=== PATIENT | female | born 2000 | race Caucasian/White ===

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

== ENCOUNTER 2022-11-01 15:54 | Emergency (ER) | payer OTHER ==
[2022-11-01 16:03] VITALS: RESP 18; TEMP 98.9; BMI 30.2
[2022-11-01] MEDS ORDERED: LACTATED RINGERS SOLUTION 1,000 ML/1,000 ML INFUS.BAG IV SCH (17:30)
[2022-11-01 17:33] LABS: HCG,QUALITATIVE URINE Positive
[2022-11-01] MEDS ORDERED: ACETAMINOPHEN 1000 MG/100 ML BAG IVPB ONE (17:34)
[2022-11-01] MEDS ORDERED: ONDANSETRON 4 MG/2 ML VIAL IVPUSH ONE ×2 (17:34→21:52)
[2022-11-01 17:36] LABS: EPI CELLS >36 /uL (0-25.1); HYALINE CASTS 3 /uL (0-3.1); PH,URINE 6.5 (5.0-8.0); URINE APPEARANCE CLOUDY; URINE BACTERIA 1269 /uL (0-1359); URINE BILIRUBIN NEGATIVE (NEGATIVE); URINE COLOR YELLOW; URINE GLUCOSE (UA) NEGATIVE (NEGATIVE); URINE KETONE 3+ (NEGATIVE); URINE LEUK ESTERASE NEGATIVE (NEGATIVE); URINE NITRITE NEGATIVE (NEGATIVE); URINE PROTEIN 1+ (NEGATIVE); URINE RBC 23 /uL (0-23.9); URINE WBC 24 /uL (0-25.8)
[2022-11-01] MEDS ORDERED: ACETAMINOPHEN INJECTION 100 ML IVPB ONE (18:03)
[2022-11-01] MEDS ORDERED: ONDANSETRON 4 MG/2 ML VIAL ONE ×2 (18:03→21:52)
[2022-11-01 18:07] LABS: BASO % 0.5 % (0-2.0); HEMATOCRIT 32.1 % (32.4-45.2); HEMOGLOBIN 10.1 GM/dL (10.7-15.3); LYMPH % 21.5 % (8-40); MCHC 31.4 g/dl (32.0-36.0); MEAN CELL VOLUME 70.2 fl (80-96); MONO % 8.8 % (3.8-10.2); NEUT % 67.2 % (42.8-82.8); RBC 4.57 M/mm3 (3.60-5.2)
[2022-11-01 18:25] LABS: ALBUMIN 3.8 g/dl (3.4-5.0); BLOOD UREA NITROGEN 7.4 mg/dL (7-18); CALCIUM 8.4 mg/dL (8.5-10.1)
[2022-11-01 18:28] LABS: CREATININE 0.5 mg/dL (0.55-1.3)
[2022-11-01 18:30] LABS: BILIRUBIN,TOTAL 0.5 mg/dL (0.2-1); TOT PROT 7.2 g/dl (6.4-8.2)
[2022-11-01 18:31] LABS: ANISOCYTOSIS 3+; MACROCYTOSIS 0; MEAN PLT VOLUME 10.3 fl (7.5-11.1); OVALOCYTE 1+; PLATELET COUNT 321 10^3/uL (134-434); TEAR DROP CELLS 1+
[2022-11-01] MEDS ORDERED: DEXTROSE 5%-0.45% SALINE 1,000 ML IV SCH (19:00)
[2022-11-01] MEDS ORDERED: ONDANSETRON *ODT* 4 MG TABLET ONE (21:53)
[2022-11-01 22:06] VITALS: BP 120/66; PULSE 68
== END 2022-11-01 22:06 | disposition home or self-care (01) ==
LOC: JER 15:54
PROC: 3E033GC Introduction of Other Therapeutic Substance into Peripheral Vein, Percutaneous Approach (ICD-10-PCS; principal; 2022-11-01)
DX: O23.41 Unspecified infection of urinary tract in pregnancy, first trimester (principal); Z3A.01 Less than 8 weeks gestation of pregnancy
CPT/HCPCS: 0241U-QW; 36415; 76817-TC; 80053; 81003; 83690; 84702; 84703; 85025; 87086; 87491; 87591; 93005; 93010; 99285-25

== ENCOUNTER 2023-04-24 16:50 | Emergency (ER) | payer OTHER ==
[2023-04-24 17:01] VITALS: BP 96/55; PULSE 82; RESP 16; TEMP 99.1; BMI 25.9
[2023-04-24] MEDS ORDERED: IBUPROFEN 400 MG TABLET (FP) PO ONE ×2 (17:56→18:08)
== END 2023-04-24 18:40 | disposition home or self-care (01) ==
LOC: JERFT 16:50
DX: J02.9 Acute pharyngitis, unspecified (principal); R09.89 Other specified symptoms and signs involving the circulatory and respiratory systems; R05.9 Cough, unspecified; H92.03 Otalgia, bilateral; Z20.822 Contact with and (suspected) exposure to COVID-19
CPT/HCPCS: 0241U-QW; 87651; 99283-25

== ENCOUNTER 2023-09-27 14:02 | Emergency (ER) | payer OTHER ==
[2023-09-27 14:21] VITALS: TEMP 98.9; BMI 25.4
[2023-09-27] MEDS ORDERED: ONDANSETRON 4 MG/2 ML VIAL ONE (16:40)
[2023-09-27] MEDS ORDERED: ACETAMINOPHEN INJECTION 100 ML IVPB ONE (16:40)
[2023-09-27] MEDS ORDERED: FAMOTIDINE 20 MG/50 ML IVPB 20 MG/50 ML MG IVPB ONE (16:40)
[2023-09-27 16:41] LABS: BASO % 0.4 % (0-2.0); EOS % 1.2 % (0-4.5); HEMATOCRIT 34.1 % (32.4-45.2); HEMOGLOBIN 10.9 GM/dL (10.7-15.3); LYMPH % 15.6 % (8-40); MCH 22.6 pg (25.7-33.7); MCHC 31.8 g/dl (32.0-36.0); MEAN CELL VOLUME 70.9 fl (80-96); MEAN PLT VOLUME 10.2 fl (7.5-11.1); MONO % 8.1 % (3.8-10.2); NEUT % 74.7 % (42.8-82.8); PLATELET COUNT 196 10^3/uL (134-434); RBC 4.82 M/mm3 (3.60-5.2); WHITE BLOOD COUNT 6.6 K/mm3 (4.0-10.0)
[2023-09-27] MEDS: SODIUM CHLORIDE 1,000 ML IV STA (17:05)
[2023-09-27 17:07] LABS: POTASSIUM 4.3 mmol/L (3.5-5.1)
[2023-09-27 17:09] LABS: CALCIUM 8.9 mg/dL (8.5-10.1)
[2023-09-27 17:10] LABS: ALBUMIN 4.1 g/dl (3.4-5.0); BLOOD UREA NITROGEN 7.8 mg/dL (7-18); MAGNESIUM 2.1 mg/dL (1.8-2.4)
[2023-09-27 17:14] LABS: TOT PROT 7.7 g/dl (6.4-8.2)
[2023-09-27 17:15] LABS: BILIRUBIN,TOTAL 0.5 mg/dL (0.2-1)
[2023-09-27 17:18] LABS: CREATININE 0.6 mg/dL (0.55-1.3)
[2023-09-27] MEDS: ACETAMINOPHEN 1000 MG/100 ML BAG IVPB ONE (17:28)
[2023-09-27] MEDS: FAMOTIDINE 20 MG/50 ML IVPB 20 MG/50 ML MG IVPB ONE (17:28)
[2023-09-27] MEDS: ONDANSETRON 4 MG/2 ML VIAL IVPUSH ONE (17:28)
[2023-09-27 18:37] LABS: URINE APPEARANCE CLOUDY; URINE BILIRUBIN NEGATIVE (NEGATIVE); URINE COLOR YELLOW; URINE GLUCOSE (UA) NEGATIVE (NEGATIVE); URINE KETONE 4+ (NEGATIVE); URINE LEUK ESTERASE NEGATIVE (NEGATIVE); URINE NITRITE NEGATIVE (NEGATIVE); URINE PROTEIN TRACE (NEGATIVE); URINE UROBILINOGEN 0.2 mg/dL (0.2-1.0)
[2023-09-27] MEDS ORDERED: METOCLOPRAMIDE HCL INJECTION 10 MG/2 ML VIAL ONE (18:37)
[2023-09-27] MEDS: METOCLOPRAMIDE HCL INJECTION 10 MG/2 ML VIAL IVPUSH ONE (18:42)
[2023-09-27] MEDS: DEXTROSE 5%-0.45% SALINE 1,000 ML IV SCH (19:05)
[2023-09-27 19:07] VITALS: RESP 20
[2023-09-27] MEDS: SODIUM CHLORIDE 0.9% 1000 ML INFUS.BAG IV ONE (19:40)
[2023-09-27 21:55] VITALS: BP 105/66; PULSE 77
== END 2023-09-27 21:55 | disposition home or self-care (01) ==
LOC: JER 14:02
PROC: 3E033GC Introduction of Other Therapeutic Substance into Peripheral Vein, Percutaneous Approach (ICD-10-PCS; principal; 2023-09-27)
PROC: 3E033GC Introduction of Other Therapeutic Substance into Peripheral Vein, Percutaneous Approach (ICD-10-PCS; 2023-09-27)
PROC: 3E033GC Introduction of Other Therapeutic Substance into Peripheral Vein, Percutaneous Approach (ICD-10-PCS; 2023-09-27)
PROC: 3E033GC Introduction of Other Therapeutic Substance into Peripheral Vein, Percutaneous Approach (ICD-10-PCS; 2023-09-27)
DX: O26.891 Other specified pregnancy related conditions, first trimester (principal); R10.812 Left upper quadrant abdominal tenderness; R10.816 Epigastric abdominal tenderness; R19.7 Diarrhea, unspecified; R51.9 Headache, unspecified; R42 Dizziness and giddiness; O21.9 Vomiting of pregnancy, unspecified; O99.511 Diseases of the respiratory system complicating pregnancy, first trimester; R09.81 Nasal congestion; R05.9 Cough, unspecified; Z3A.01 Less than 8 weeks gestation of pregnancy; Z20.822 Contact with and (suspected) exposure to COVID-19
CPT/HCPCS: 0241U-QW; 36415; 76817-TC; 80053; 81003; 83690; 83735; 84702; 84703; 85025; 87086; 99284-25; J0131

== ENCOUNTER 2024-06-02 21:28 | Inpatient (IN) | payer OTHER ==
[2024-06-02] MEDS: LACTATED RINGERS SOLUTION 1,000 ML/1,000 ML INFUS.BAG IV SCH (22:30)
[2024-06-02] MEDS ORDERED: AMPICILLIN SODIUM 2 GM VIAL ONE (22:51)
[2024-06-02] MEDS: AMPICILLIN - 2 GM in SODIUM CHLORIDE 100 ML IVPB ONE (22:55)
[2024-06-02 23:25] LABS: BASO % 0.2 % (0-2.0); EOS % 0.3 % (0-4.5); HEMATOCRIT 33.4 % (32.4-45.2); HEMOGLOBIN 10.3 GM/dL (10.7-15.3); LYMPH % 8.2 % (8-40); MCH 22.3 pg (25.7-33.7); MCHC 30.8 g/dl (32.0-36.0); MEAN CELL VOLUME 72.4 fl (80-96); MEAN PLT VOLUME 8.9 fl (7.5-11.1); MONO % 7.5 % (3.8-10.2); NEUT % 83.8 % (42.8-82.8); PLATELET COUNT 164 10^3/uL (134-434); RBC 4.61 M/mm3 (3.60-5.2); RDW 34.5 % (11.6-15.6); WHITE BLOOD COUNT 10.3 K/mm3 (4.0-10.0)
[2024-06-02 23:30] VITALS: BMI 33.8
[2024-06-02] MEDS ORDERED: FENTANYL/BUPIVACAINE/NS/PF - PCEA - 50 ML DISP.SYRIN EP ONE (23:33)
[2024-06-02 23:34] LABS: INR 0.91 (0.83-1.09); PROTHROMBIN TIME (PATIENT) 10.5 SEC (9.7-13.0)
[2024-06-02 23:37] LABS: ACTIVATED PTT 28.2 SECONDS (25.2-36.5)
[2024-06-03] MEDS: FENTANYL/BUPIVACAINE/NS/PF - PCEA - 50 ML DISP.SYRIN EP SCH
[2024-06-03 00:39] LABS: CALCIUM 8.9 mg/dL (8.5-10.1)
[2024-06-03] MEDS ORDERED: NALOXONE HCL 0.4 MG/ML VIAL IVPUSH PRN (00:39)
[2024-06-03 00:40] LABS: BLOOD UREA NITROGEN 4.8 mg/dL (7-18)
[2024-06-03 00:43] LABS: CREATININE 0.5 mg/dL (0.55-1.3)
[2024-06-03] MEDS ORDERED: FENTANYL/BUPIVACAINE/NS/PF - PCEA - 50 ML DISP.SYRIN EP SCH (00:45)
[2024-06-03] MEDS ORDERED: AMPICILLIN SODIUM 1 GM VIAL ONE ×4 (02:23→15:02)
[2024-06-03] MEDS: AMPICILLIN - 1 GM in SODIUM CHLORIDE 100 ML IVPB SCH (02:30)
[2024-06-03] MEDS ORDERED: FENTANYL/BUPIVACAINE/NS/PF - PCEA - 50 ML DISP.SYRIN EP ONE ×3 (04:16→12:29)
[2024-06-03] MEDS ORDERED: OXYTOCIN 30 UNITS in 0.9% NS 30 UNIT/500 ML INFUS.BAG IVPB ONE (06:02)
[2024-06-03] MEDS: OXYTOCIN 30 UNITS in 0.9% NS 30 UNIT/500 ML INFUS.BAG IVPB SCH (06:10)
[2024-06-03] MEDS ORDERED: BUPIVACAINE HCL/PF 0.25% (2.5MG/ML) 10 ML VIAL ONE ×2 (08:59→13:41)
[2024-06-03] MEDS ORDERED: FENTANYL CITRATE/PF 50 MCG/ML VIAL ONE ×2 (08:59→13:41)
[2024-06-03 13:06] LABS: POC NITRAZINE POS
[2024-06-03] MEDS ORDERED: LIDOCAINE HCL 1% PRESERVATIVE FREE - 30ML VIAL ONE (16:34)
[2024-06-03] MEDS ORDERED: OXYTOCIN 20 UNITS in 0.9% NS 20 UNIT/1,000 ML INFUS.BAG IV ONE (16:34)
[2024-06-03] MEDS: OXYTOCIN 20 UNITS in 0.9% NS 20 UNIT/1,000 ML INFUS.BAG IV SCH (16:57)
[2024-06-03] MEDS ORDERED: METHYLERGONOVINE MALEATE 0.2 MG/1 ML AMP IM PRN (17:16)
[2024-06-03] MEDS ORDERED: BISACODYL 10 MG SUPP.RECT RC PRN (17:16)
[2024-06-03] MEDS ORDERED: oxyCODONE HCL 5 MG TABLET PO PRN (17:16)
[2024-06-03] MEDS ORDERED: BENZOCAINE 28 GM HEMORRHOIDAL OINTMENT TP PRN (17:16)
[2024-06-03 17:46] LABS: CORD BASE EXCESS -3.3 mmol/L (0-2); CORD HCO3 20.9 mmHg (20-29); CORD pH 7.382 (7.14-7.44)
[2024-06-03 17:48] LABS: CORD HCO3 23.5 mmHg (20-29); CORD PCO2 60.9 mmHg (30-78); CORD pH 7.204 (7.14-7.44)
[2024-06-03] MEDS ORDERED: IBUPROFEN 600 MG TABLET (FP) PO ONE (20:05)
[2024-06-03] MEDS: IBUPROFEN 600 MG TABLET (FP) PO PRN (20:08)
[2024-06-03] MEDS: WITCH HAZEL 50% (TUCKS) 40 PAD/JAR PAD TP PRN (23:38)
[2024-06-03] MEDS: BENZOCAINE 20% 57 GM BOTTLE TP PRN (23:38)
[2024-06-04 07:09] LABS: BASO % 0.1 % (0-2.0); EOS % 0.6 % (0-4.5); HEMATOCRIT 31.1 % (32.4-45.2); HEMOGLOBIN 9.6 GM/dL (10.7-15.3); LYMPH % 10.3 % (8-40); MCH 22.6 pg (25.7-33.7); MCHC 30.9 g/dl (32.0-36.0); MEAN CELL VOLUME 73.1 fl (80-96); MEAN PLT VOLUME 9.3 fl (7.5-11.1); MONO % 7.1 % (3.8-10.2); NEUT % 81.9 % (42.8-82.8); RBC 4.25 M/mm3 (3.60-5.2); RDW 34.8 % (11.6-15.6); WHITE BLOOD COUNT 12.7 K/mm3 (4.0-10.0)
[2024-06-04 08:31] LABS: PLATELET COUNT 142 10^3/uL (134-434)
[2024-06-04] MEDS: ACETAMINOPHEN 325 MG TABLET (FP) PO PRN (11:04)
[2024-06-04] MEDS ORDERED: SENNOSIDES/DOCUSATE COMBO (SENNA PLUS) TABLET (UD) PO PRN (22:00)
[2024-06-05 06:10] VITALS: RESP 18
[2024-06-05 12:22] VITALS: BP 111/74; PULSE 76; TEMP 98.1
== END 2024-06-05 15:45 | disposition home or self-care (01) | DRG 560 ==
LOC: JDEL 21:28 → JLDR 22:00 → J3W 06-03 20:51
PROVIDERS: ADMIT Obstetrics & Gynecology; ATTEND Obstetrics & Gynecology
PROC: 10E0XZZ Delivery of Products of Conception, External Approach (ICD-10-PCS; principal; 2024-06-03)
DX: O99.824 Streptococcus B carrier state complicating childbirth (principal); Z3A.40 40 weeks gestation of pregnancy; Z37.0 Single live birth
CPT/HCPCS: 36415; 36600; 59025; 59409; 76819-TC; 80048; 82803; 83986-QW; 85025; 85610; 85730; 86780; 86850; 86900; 86901

== ENCOUNTER 2024-09-12 17:29 | Emergency (ER) | payer OTHER ==
[2024-09-12 17:40] VITALS: RESP 18; TEMP 98.8; BMI 27.3
[2024-09-12] MEDS ORDERED: FAMOTIDINE 20 MG/50 ML IVPB 20 MG/50 ML MG IVPB ONE (18:50)
[2024-09-12] MEDS ORDERED: ONDANSETRON 4 MG/2 ML VIAL ONE ×2 (18:50→23:34)
[2024-09-12] MEDS ORDERED: ACETAMINOPHEN INJECTION 100 ML ONE (18:50)
[2024-09-12 18:52] LABS: BASO % 0.4 % (0-2.0); HEMATOCRIT 39.2 % (32.4-45.2); HEMOGLOBIN 12.6 GM/dL (10.7-15.3); LYMPH % 16.4 % (8-40); MCH 25.8 pg (25.7-33.7); MCHC 32.2 g/dl (32.0-36.0); MEAN CELL VOLUME 80.1 fl (80-96); MONO % 8.4 % (3.8-10.2); NEUT % 73.8 % (42.8-82.8); PLATELET COUNT 185 10^3/uL (134-434); RBC 4.89 M/mm3 (3.60-5.2); RDW 14.7 % (11.6-15.6); WHITE BLOOD COUNT 6.8 K/mm3 (4.0-10.0)
[2024-09-12] MEDS: ACETAMINOPHEN 1000 MG/100 ML BAG IVPB ONE (19:06)
[2024-09-12] MEDS: FAMOTIDINE 20 MG/50 ML IVPB 20 MG/50 ML MG IVPB ONE (19:07)
[2024-09-12] MEDS: ONDANSETRON 4 MG/2 ML VIAL IVPUSH ONE ×2 (19:07→23:40)
[2024-09-12] MEDS: LACTATED RINGERS SOLUTION 1000 ML INFUS.BAG IV ONE ×2 (19:07→19:42)
[2024-09-12 19:24] LABS: POTASSIUM 3.9 mmol/L (3.5-5.1)
[2024-09-12 19:26] LABS: CALCIUM 8.9 mg/dL (8.5-10.1)
[2024-09-12 19:27] LABS: ALBUMIN 3.9 g/dl (3.4-5.0); MAGNESIUM 2.2 mg/dL (1.8-2.4)
[2024-09-12 19:30] LABS: CREATININE 0.5 mg/dL (0.55-1.3)
[2024-09-12 19:31] LABS: BILIRUBIN,TOTAL 0.7 mg/dL (0.2-1); TOT PROT 7.5 g/dl (6.4-8.2)
[2024-09-12 21:06] LABS: URINE APPEARANCE CLEAR; URINE BILIRUBIN NEGATIVE (NEGATIVE); URINE COLOR YELLOW; URINE GLUCOSE (UA) NEGATIVE (NEGATIVE); URINE KETONE 3+ (NEGATIVE); URINE LEUK ESTERASE NEGATIVE (NEGATIVE); URINE NITRITE NEGATIVE (NEGATIVE); URINE PROTEIN NEGATIVE (NEGATIVE); URINE UROBILINOGEN 0.2 mg/dL (0.2-1.0)
[2024-09-12 23:42] VITALS: BP 122/67; PULSE 78
== END 2024-09-12 23:42 | disposition home or self-care (01) ==
LOC: JER 17:29
PROC: 3E033GC Introduction of Other Therapeutic Substance into Peripheral Vein, Percutaneous Approach (ICD-10-PCS; principal; 2024-09-12)
PROC: 3E033NZ Introduction of Analgesics, Hypnotics, Sedatives into Peripheral Vein, Percutaneous Approach (ICD-10-PCS; 2024-09-12)
PROC: 3E033GC Introduction of Other Therapeutic Substance into Peripheral Vein, Percutaneous Approach (ICD-10-PCS; 2024-09-12)
PROC: 3E033GC Introduction of Other Therapeutic Substance into Peripheral Vein, Percutaneous Approach (ICD-10-PCS; 2024-09-12)
DX: O21.9 Vomiting of pregnancy, unspecified (principal); O99.891 Other specified diseases and conditions complicating pregnancy; R05.9 Cough, unspecified; R19.7 Diarrhea, unspecified; O26.891 Other specified pregnancy related conditions, first trimester; R10.13 Epigastric pain; Z20.822 Contact with and (suspected) exposure to COVID-19; Z3A.01 Less than 8 weeks gestation of pregnancy
CPT/HCPCS: 0241U-QW; 36415; 71045-TC-FY; 76817-TC; 80053; 81003; 83690; 83735; 84702; 84703; 85025; 87086; 99285-25; J0131